=== PATIENT | male | born 2000 | race Caucasian/White ===

== ENCOUNTER 2019-11-10 16:31 | Emergency (ER) | payer OTHER, SELFPAY ==
--- NOTE | ~2019-11-10 | XR_ITS ---
EXAMINATION: XR chest 1V portable EXAM DATE: 11/10/2019 17:23 INDICATION: Cough and shortness of breath. Chills. Symptoms 2 days. TECHNIQUE: Portable AP frontal chest x-ray was obtained. There is no prior study for comparison. FINDINGS: The lungs are clear. There are no pleural effusions. Cardiomediastinal silhouette is norm al. There is no pneumothorax suspected. The bones and soft tissues are unremarkable. IMPRESSION: Unremarkable chest x-ray exam. Reviewed, dictated and finalized at location A.
--- NOTE | 2019-11-10 16:33 | ECG_ITS ---
Measurements Intervals [place] Rate: 101 P: 75 [place]: 143 QRS: 67 QRSD: 94 T: 35 QT: 343 QTc: 445 Interpretive Statements SINUS TACHYCARDIA BASELINE WANDER- I, II, V3-V6 BORDERLINE ECG Electronically Signed On 11-11-2019 7:05:36 CDT by Donald Clark D.O.
[2019-11-10 16:38] VITALS: BP 138/93; PULSE 84; RESP 20; TEMP 36.6; O2SAT 100
[2019-11-10 16:46] VITALS: PULSE 91
[2019-11-10 16:49] LABS: Basophils Percent Auto 0.6 % (0.2-1.2); Eosinophils Percent Auto 0.6 % (0-4.4); Hematocrit 45.5 % (42.0-52.0); Hemoglobin 15.4 g/dL (14.0-18.0); Immature Granulocyte Absolute 0.01 K/mm3 (0.00-0.031); Immature Granulocyte Percent A 0.1 % (0-0.5); Lymphocytes Absolute Auto 3.42 K/mm3 (0.9-3.2); Lymphocytes Percent Auto 49.9 % (18.3-44.2); Mean Corpuscular HGB Conc 33.8 g/dl (32-36); Mean Corpuscular Hemoglobin 30.6 pg (26-34); Mean Corpuscular Volume 90.5 fl (80-100); Mean Platelet Volume 11.4 fl (7.4-10.4); Monocytes Absolute Auto 0.8 K/mm3 (0.1-0.6); Monocytes Percent Auto 12.3 % (2.6-8.5); Neutrophils Absolute Auto 2.5 K/mm3 (1.3-6.7); Neutrophils Percent Auto 36.5 % (45.5-73.1); Platelet Count Result 199 k/mm3 (150-375); Red Blood Count 5.03 M/mm3 (4.6-6.20); Red Cell Distribution Width 12.7 % (11.5-14.5); White Blood Count 6.9 K/mm3 (4.5-10.0)
--- NOTE | 2019-11-10 16:53 | ED.GENADULT ---
HPI - General Adult General Chief complaint: Shortness of Breath/Dyspnea Stated complaint: I'm having issue breathing Time Seen by Provider: 11/10/19 16:34 Source: patient Mode of arrival: ambulatory Limitations: no limitations History of Present Illness HPI narrative: Patient is a 19-year-old male who presents with several days duration of congestion rhinorrhea cough productive of phlegm with some blood streak sputum at times patient notes pain to the anterior chest worse with coughing patient notes tobacco abuse patient also notes he has had some intermittent vomiting and diarrhea. Patient has not taken anything for his symptoms and on arrival is in the room in no distress resting comfortably. Patient denies any sick contacts Related Data Home Medications Medication Instructions Recorded Confirmed alprazolam 0.25 mg PO QID 11/10/19 Allergies Allergy/AdvReac Type Severity Reaction Status Date / Time No Known Allergies Allergy Unknown Verified 11/10/19 16:48 Review of Systems Review of Systems: All systems reviewed & are unremarkable except as noted in HPI and below PMFSH Past Medical History Medical History Anxiety Diverticulitis Social History Social History Smoking status: Current some day smoker Gender identity (if verbalized by the patient): Female Exam Narrative: Exam Narrative: GENERAL: Well-appearing, well-nourished, and in no acute distress. HEAD: Normocephalic, atraumatic. EYES: PERRLA and EOMI. ENT: Nares clear, no rhinorrhea or epistaxis. Mucous membranes moist. NECK: Supple. No adenopathy or masses. CHEST: Clear to auscultation. No respiratory distress. No wheezes rales or rhonchi HEART: Regular rate and rhythm. No murmur heard. Normal peripheral pulses. ABDOMEN: Soft, nontender, nondistended EXTREMITIES: Normal range of motion. No edema. SKIN: Warm, dry, no rash. NEURO: No focal deficits. Alert and oriented x3. PSYCH: Normal mood and affect. Course Course Emergency Course: Patient in the room in no distress aware of case findings treatment plan and diagnosis felt appropriate for outpatient evaluation by primary care provided with reasons to return no high risk changes in the blood work or imaging Vital Signs Vital signs: Vital Signs Temperature 97.8 F 11/10/19 16:38 Pulse Rate 84 11/10/19 16:38 Respiratory Rate 20 11/10/19 16:38 Blood Pressure 138/93 H 11/10/19 16:38 Pulse Oximetry 100 11/10/19 16:38 Temperature 97.8 F 11/10/19 16:38 Pulse Rate 91 11/10/19 16:46 Respiratory Rate 20 11/10/19 16:38 Blood Pressure 138/93 H 11/10/19 16:38 Pulse Oximetry 100 11/10/19 16:38 Medical Decision Making MDM Narrative Medical decision making narrative: Patient in the room in no distress aware of case findings treatment plan and diagnosis agreeing to follow-up as directed or to return if symptoms worsen or concerns. Patient is afebrile nontoxic-appearing no distress and felt appropriate for outpatient reevaluation. Patient provided with reasons to return Vital Signs Vital Signs: Vital Signs Temperature 97.8 F 11/10/19 16:38 Pulse Rate 84 11/10/19 16:38 Respiratory Rate 20 11/10/19 16:38 Blood Pressure 138/93 H 11/10/19 16:38 Pulse Oximetry 100 11/10/19 16:38 Temperature 97.8 F 11/10/19 16:38 Pulse Rate 91 11/10/19 16:46 Respiratory Rate 20 11/10/19 16:38 Blood Pressure 138/93 H 11/10/19 16:38 Pulse Oximetry 100 11/10/19 16:38 Lab Data Result diagrams: 11/10/19 16:42 11/10/19 16:42 Labs: Lab Results 11/10/19 11/10/19 Range/Units 16:42 16:42 WBC 6.9 (4.5-10.0) K/mm3 RBC 5.03 (4.6-6.20) M/mm3 Hgb 15.4 (14.0-18.0) g/dL Hct 45.5 (42.0-52.0) % MCV 90.5 (80-100) fl MCH 30.6 (26-34) pg MCHC 33.8 (32-36) g/dl RDW 12.7 (11.5-14.5) % Pl
[2019-11-10 17:02] LABS: Alanine Aminotransferase 13 U/L (4-50); Alkaline Phosphatase 76 U/L (38-126); Aspartate Amino Transferase 27 U/L (17-59); Blood Urea Nitrogen 17 mg/dL (9-20); Calcium 9.4 mg/dL (8.4-10.2); Carbon Dioxide 27 mmol/L (22-30); Chloride 102 mmol/L (98-107); Estimated CRCL calculation 106 ml/min; Estimated Glomerular Filt Rate > 60; Glucose 104 mg/dL (75-110); Lipase 35 U/L (23-300); Potassium 3.8 mmol/L (3.4-5.0); Sodium 138 mmol/L (137-145)
[2019-11-10] MEDS: SODIUM CHLORIDE 0.9% IV 1,000 ML 999 ML IV CONT (17:33)
[2019-11-10] MEDS: ONDANSETRON INJ 4 MG/2 ML VIAL IV PUSH (17:33)
[2019-11-10] MEDS: FAMOTIDINE 20 MG/2 ML VIAL IV PUSH (17:33)
[2019-11-10 18:21] VITALS: BP 103/66; PULSE 56; RESP 13; O2SAT 100
== END 2019-11-10 18:22 | disposition home or self-care (01) ==
PROVIDERS: Emergency Provider Emergency Medicine; PCP Internal Medicine
DX: J06.9 Acute upper respiratory infection, unspecified (principal); F41.9 Anxiety disorder, unspecified; F17.200 Nicotine dependence, unspecified, uncomplicated; R00.0 Tachycardia, unspecified
CPT/HCPCS: 36415; 71045; 80048; 80076; 83690; 85025; 93005; 96361; 96374; 96375; 99284; J2405; J7030

== ENCOUNTER 2021-11-22 15:32 | Emergency (ER) | payer OTHER, SELFPAY ==
--- NOTE | ~2021-11-22 | US_ITS ---
EXAMINATION: US scrotum doppler DATE: 11/22/2021 16:05 INDICATION: Right testicular pain. TECHNIQUE: Grayscale and Doppler ultrasound images of the testes were obtained. COMPARISON: None. FINDINGS: The right testis measures 4.1 x 3.2 x 2.7 cm. The left testis measures 4.7 x 3.8 x 2.2 cm. There is normal vascular flow to both testes. The right epididymis is normal with normal vascular violetta w. The left epididymis is normal with normal vascular flow. There is no varicocele or hydrocele. IMPRESSION: 1. Normal testes. Reviewed, dictated and finalized at location B. IMPRESSION: 1. Normal testes.
[2021-11-22 15:34] VITALS: BP 128/85; PULSE 76; RESP 20; TEMP 36.7; O2SAT 98
--- NOTE | 2021-11-22 15:59 | PC.NURSE ---
pt in [place].
--- NOTE | 2021-11-22 16:12 | ED.MALEGU ---
HPI - Male Genitourinary General Chief complaint: Urogenital-Male Stated complaint: testicular pain Time Seen by Provider: 11/22/21 15:42 History of Present Illness HPI Narrative: 21-year-old male presents the emergency room with acute onset of right testicular pain. Patient states he was having intercourse last night when his girlfriend while he grabbed his testicles, causing him to have pain in the right testicle. Patient states the pain is slightly improved since last night. Patient states that he had intercourse again this morning and notes a chunky seminal fluid Related Data Home Medications Medication Instructions Recorded Confirmed No Home Medications 11/22/21 11/22/21 Allergies Allergy/AdvReac Type Severity Reaction Status Date / Time No Known Allergies Allergy Unknown Verified 11/22/21 15:59 [facility] Past Medical History Medical History (Updated 11/22/21 @ 18:04 by Ry Willoughby APRN) Anxiety Diverticulitis Social History Social History Smoking status: Current some day smoker Gender identity (if verbalized by the patient): Female Course Vital Signs Vital signs: Vital Signs Temperature 36.7 C 11/22/21 15:34 Pulse Rate 76 11/22/21 15:34 Respiratory Rate 20 11/22/21 15:34 Blood Pressure 128/85 11/22/21 15:34 Pulse Oximetry 98 11/22/21 15:34 Temperature 36.7 C 11/22/21 15:34 Pulse Rate 76 11/22/21 15:34 Respiratory Rate 20 11/22/21 15:34 Blood Pressure 128/85 11/22/21 15:34 Pulse Oximetry 98 11/22/21 15:34 MDM - Male Genitourinary MDM Narrative Medical decision making narrative: 21-year-old male presented the emergency room for evaluation of testicular pain following intercourse last night. Testicular ultrasound showed no acute abnormality with the testes. Urine showed no evidence of infection or hematuria. After discussion with the patient regarding the results, he was agreeable to being tested, but not treated, for gonorrhea chlamydia and trichomonas. Lab Data Attestation: I reviewed the patient's lab results. Labs: Lab Results 11/22/21 Range/Units 16:42 Urine Color Yellow (Yellow) Urine Appearance Clear (Clear) Urine pH 6.5 (5.0-9.0) Ur Specific [place] 1.025 (1.001-1.035) Urine Protein Negative (Negative) mg/dL Urine Glucose (UA) Negative (Negative) mg/dL Urine Ketones Trace (Negative) mg/dL Ur Blood (Man) Negative (Negative) Urine Nitrate Negative (Negative) Urine Bilirubin Negative (Negative) Urine Urobilinogen 0.2 (<2.0) mg/dL Leukocyte Esterase Rfl Negative (Negative) STACY/UL Urine Characteristics Clear Imaging Data Radiologist's impression: Impressions Scrotum Ultrasound 11/22/21 16:07 IMPRESSION: 1. Normal testes. Discharge Plan Discharge Clinical Impression: Pain in testicle Qualifiers: Laterality: right Qualified Code(s): N50.811 - Right testicular pain Patient Disposition: Home, Self-Care Condition: Stable Instructions: Antibiotic Form, Testicle Pain (ED), Scrotal Pain (ED) Additional Instructions: Recommend Tylenol and ibuprofen as needed for pain if you are continuing to have painful intercourse, recommend discontinuing the activity until the pain is resolved. Prescriptions: No Action No Home Medications RF: 0 Follow-up/Referrals: Apolinar,MD Bryan [Primary Care Provider] - Emily Ware MD [Physician] - Time of Disposition: 18:04
--- NOTE | 2021-11-22 16:48 | PC.NURSE ---
pt would like to clarify that his urine is not lumpy, his ejaculate is.
[2021-11-22 17:47] LABS: Appearance Urine Clear (Clear); Bilirubin Urine Negative (Negative); Blood Urine Negative (Negative); Color Urine Yellow (Yellow); Glucose Urine UA Negative (Negative); Ketones Urine Trace mg/dL (Negative); Leukocyte Esterase Ur Negative LEU/UL (Negative); Nitrate Urine Negative (Negative); Protein Urine Negative (Negative); Specific Grav Ur 1.025 (1.001-1.035); Urobilinogen Urine 0.2 mg/dL (<2.0); pH Urine 6.5 (5.0-9.0)
[2021-11-22 17:54] LABS: Mucus Urine Rare /lpf; RBC Urine 0-2 /hpf (0-2); Squamous Epithelial Cell Urine Rare /hpf (Few)
[2021-11-22 18:06] LABS: Add Urine Microscopic? YES
[2021-11-22 18:20] VITALS: BP 122/77; PULSE 70; RESP 14; O2SAT 100
== END 2021-11-22 18:21 | disposition home or self-care (01) ==
PROVIDERS: Emergency Provider Nurse Practitioner Family; PCP Internal Medicine
DX: N50.811 Right testicular pain (principal); F17.200 Nicotine dependence, unspecified, uncomplicated
CPT/HCPCS: 76870; 81001; 87491; 87591; 87661; 93976; 99284

== ENCOUNTER 2022-09-07 14:12 | Emergency (ER) | payer OTHER, SELFPAY ==
--- NOTE | 2022-09-07 14:22 | ED.WOUNDLAC ---
HPI - Wound/Laceration General Chief Complaint: Wound/Laceration Stated Complaint: wound check Time Seen by Provider: 09/07/22 14:37 Source: patient and RN notes reviewed Mode of arrival: ambulatory Limitations: no limitations History of Present Illness HPI narrative: 22 y/o male presented for c/o sore on penis shaft. States it started as a painful red bump about 10 days ago. This was after shaving the deandra area, then had sexual contact, and admits he did not shower. He noted a hair at the center. Since then it has increased in size and drained yellow pus yesterday. States he had a large amount of pus and blood from the site, which stopped after applying pressure. Continues to report pain to the site. No active drainage today. Denies n/v/d/f/c. Denies concern for STD. Denies any other skin lesions. Girlfriend at bedside denies lesions. Related Data Allergies Allergy/AdvReac Type Severity Reaction Status Date / Time No Known Allergies Allergy Unknown Verified 09/07/22 14:26 Review of Systems Review of Systems: CONSTITUTIONAL: Denies body aches, fever, chills, or sweats. CARDIOVASCULAR: Denies chest pain, palpitations, or edema. RESPIRATORY: Denies cough or dyspnea. GASTROINTESTINAL: Denies abdominal pain, nausea, vomiting, or diarrhea. GENITOURINARY: Denies dysuria, frequency, urgency, hematuria, flank pain SKIN: Reports open area to penis MUSCULOSKELETAL: Denies back pain or myalgia. [facility] Past Medical History Medical History Anxiety Diverticulitis Social History Social History Smoking status: Current some day smoker Gender identity (if verbalized by the patient): Female Comments At time of signature, I have reviewed and agree with nursing past medical, surgical, social and family history unless otherwise noted. Please see nursing chart for further information. There is no relevant family history pertinent to the presenting complaint Exam Narrative: GENERAL: Well-appearing and in no acute distress. EYES: EOMI. . ENT: Mucous membranes pink and moist. NECK: Normal AROM. Supple. CHEST: No respiratory distress. Clear to auscultation. HEART: Regular rate and rhythm. ABDOMEN: Soft, nontender, nondistended, No CVA tenderness : approx 1cmx0.5cm diameter erythematous ulcerated area to right penis shaft, no active drainage; reports tenderness, no induration or fluctuance SKIN: Warm, dry, no rash. NEURO: No focal deficits. Alert and oriented x3. Gait steady. PSYCH: Normal affect. Course Course Emergency Course: Patient is aware of diagnosis, understands and agrees to treatment plan. Anticipatory guidance given. Patient agrees to follow-up as directed and is aware of reasons to seek care at the emergency department. Portions of this record may have been created with voice recognition software Level of Care: Express Care Visit Vital Signs Vital signs: Vital Signs Temperature 98.5 F 09/07/22 14:33 Pulse Rate 64 09/07/22 14:33 Respiratory Rate 16 09/07/22 14:33 Blood Pressure 138/69 09/07/22 14:33 Pulse Oximetry 100 09/07/22 14:33 Oxygen Delivery Room Air 09/07/22 14:33 Temperature 98.5 F 09/07/22 14:33 Pulse Rate 64 09/07/22 14:33 Respiratory Rate 16 09/07/22 14:33 Blood Pressure 138/69 09/07/22 14:33 Pulse Oximetry 100 09/07/22 14:33 Oxygen Delivery Room Air 09/07/22 14:33 Reviewed MDM - Wound/Laceration MDM Narrative Medical decision making narrative: Patient presented for c/o painful sore to right side of penis shaft for 10 days, stating it has drained pus last night. Appearance on PE is c/w ulceration, possibly r/t recent drainage. It shows no induration or fluctuance, no vesicle or covered lesion. Declines STD testing. Discussed at length possible etiologies of the lesion as well as risk of jose's gangrene. Advised supportive measur
[2022-09-07 14:33] VITALS: BP 138/69; PULSE 64; RESP 16; TEMP 36.9; O2SAT 100
== END 2022-09-07 15:06 | disposition home or self-care (01) ==
PROVIDERS: Emergency Provider Nurse Practitioner Family
DX: L98.8 Other specified disorders of the skin and subcutaneous tissue (principal); F17.200 Nicotine dependence, unspecified, uncomplicated
CPT/HCPCS: 99213; G0463

== ENCOUNTER 2022-09-11 15:58 | Emergency (ER) | payer OTHER, SELFPAY ==
[2022-09-11 16:02] VITALS: BP 113/65; PULSE 56; RESP 16; TEMP 36.4; O2SAT 99
--- NOTE | 2022-09-11 16:21 | ED.SKABFB ---
HPI - Skin/Abscess/Foreign Bdy General Chief complaint: Skin/Abscess/Foreign Body Stated complaint: Male Urogenital Time Seen by Provider: 09/11/22 16:21 Source: patient Mode of arrival: ambulatory Limitations: no limitations History of Present Illness HPI narrative: 22-year-old male presents requesting ingrown hair to penis be removed today. Patient states he was seen here several days ago and given a antibiotic to treat infection from an ingrown hair. States at that time they could not find the hair to remove it. Today he states he can see it but he is not able to remove it himself. Has been taking doxycycline as prescribed. Afebrile. States drainage daily from infection. Is concerned that if ingrown hair is not removed will not heal properly. All systems reviewed and negative except as noted above. Related Data Allergies Allergy/AdvReac Type Severity Reaction Status Date / Time No Known Allergies Allergy Unknown Verified 09/11/22 16:16 Review of Systems Review of Systems: CONSTITUTIONAL: Denies fever, chills, or sweats. EYES: Denies visual changes, redness, or discharge. ENT: Denies rhinorrhea, congestion, sore throat, or otalgia. CARDIOVASCULAR: Denies chest pain, palpitations, or edema. RESPIRATORY: Denies cough or dyspnea. GASTROINTESTINAL: Denies abdominal pain, nausea, vomiting, or diarrhea. GENITOURINARY: Denies dysuria or hematuria. SKIN: Denies rash or itching. Reports ingrown hair to penis. MUSCULOSKELETAL: Denies back pain, joint pain, or myalgia. NEUROLOGIC: Denies headache, numbness, or weakness. PSYCHIATRIC: Denies anxiety or depression. All other systems reviewed are negative, except as documented in HPI. PMFSH Past Medical History Medical History (Updated 09/11/22 @ 16:30 by Coleen Sebastian NP) Anxiety Diverticulitis Social History Social History Smoking status: Current some day smoker Gender identity (if verbalized by the patient): Female Comments At time of signature, agree with nursing past medical, surgical, social and family history. There is no relevant family history pertinent to the presenting complaint. Exam Narrative: GENERAL: This is a well-nourished, well-developed patient, in no apparent distress. HEAD: normocephalic, atraumatic. EYES: PERRL. Sclera clear/white. Vision is grossly intact. EARS: External ears normal NOSE: External nose normal NECK: Neck supple, non-tender without lymphadenopathy, masses or thyromegaly. CARDIOVASCULAR: Regular rate and rhythm without murmurs, gallops, or rubs. RESPIRATORY: Clear to auscultation. Breath sounds equal bilaterally. No wheezes, rales, or rhonchi. SKIN: warm, Dry, intact with no suspicious lesions or rash, good texture and turgor. Ingrown hair noted to underside of shaft of penis with surrounding erythema. NEURO: awake, alert, and oriented to person, place and time. There were no obvious focal neurologic abnormalities. EXTREMITIES: No joint tenderness, effusion, or edema noted. Course Course Level of Care: Express Care Visit Vital Signs Vital signs: Vital Signs Temperature 36.4 C 09/11/22 16:02 Pulse Rate 56 L 09/11/22 16:02 Respiratory Rate 16 09/11/22 16:02 Blood Pressure 113/65 09/11/22 16:02 Pulse Oximetry 99 09/11/22 16:02 Oxygen Delivery Room Air 09/11/22 16:02 Temperature 36.4 C 09/11/22 16:02 Pulse Rate 56 L 09/11/22 16:02 Respiratory Rate 16 09/11/22 16:02 Blood Pressure 113/65 09/11/22 16:02 Pulse Oximetry 99 09/11/22 16:02 Oxygen Delivery Room Air 09/11/22 16:02 Reviewed Procedures Other Procedure Procedure 1: Other Procedure: ingrown hair pulled out of skin using 18 gauge needle. is now growing normally. MDM - Skin/Abscess/Foreign Bdy MDM Narrative Medical decision making narrative: Patient is aware of diagnosis, understands and agrees to treatment plan. Anticipatory guidance
== END 2022-09-11 16:51 | disposition home or self-care (01) ==
PROVIDERS: Emergency Provider Nurse Practitioner Family
DX: L73.1 Pseudofolliculitis barbae (principal)
CPT/HCPCS: 99211; G0463

== ENCOUNTER 2023-01-02 21:11 | Emergency (ER) | payer OTHER, SELFPAY ==
[2023-01-02 21:17] VITALS: BP 119/68; PULSE 54; RESP 14; TEMP 36.4; O2SAT 99
--- NOTE | 2023-01-02 22:33 | ED.WOUNDLAC ---
HPI - Wound/Laceration General Chief Complaint: Wound/Laceration Stated Complaint: left index finger laceration Time Seen by Provider: 01/02/23 22:33 Source: patient Mode of arrival: ambulatory Limitations: no limitations History of Present Illness HPI narrative: THis is a 22 year old male right hand dominant who presents for evaluation of left index finger laceration. He states he was messing with new knife when he accidentally cut his left index finger on this knife. Last tetanus 4 years ago. Bleeding controlled. Related Data Allergies Allergy/AdvReac Type Severity Reaction Status Date / Time No Known Allergies Allergy Unknown Verified 09/11/22 16:16 Review of Systems Review of Systems: All systems reviewed & are unremarkable except as noted in HPI and below PMFSH Past Medical History Medical History (Updated 01/02/23 @ 22:52 by Michelle Espinoza MD) Anxiety Diverticulitis Social History Social History (Updated 01/02/23 @ 22:34 by Michelle Espinoza MD) Smoking status: Current some day smoker Substance use type: marijuana Gender identity (if verbalized by the patient): Female Exam Const: General: no acute distress and alert Nutritional Appearance: well nourished Orientation/consciousness: patient oriented x3 HENMT: Head: normal to inspection Eyes: EOM: EOMs intact bilaterally Chest: Chest palpation & inspection: normal inspection of the chest Resp: Effort & Inspection: normal respiratory effort Neuro: General: patient oriented x3, moves all extremities and CN's II-XI intact bilaterally Cranial nerves: Yes Nystagmus not present Gait exam (Neuro): Normal gait present Extrem: Other: FROM linear laceration at DIP joint dorsum index finger 1 cm Psych: Mental Status: mental status grossly normal Attitude: cooperative Course Reevaluation(s) Reevaluation #1: I repaired patient finger and discussed wound care and discharge plan Date: 01/02/23 Time: 22:51 Vital Signs Vital signs: Vital Signs Temperature 97.6 F 01/02/23 21:17 Pulse Rate 54 L 01/02/23 21:17 Respiratory Rate 14 01/02/23 21:17 Blood Pressure 119/68 01/02/23 21:17 Pulse Oximetry 99 01/02/23 21:17 Oxygen Delivery Room Air 01/02/23 21:17 Temperature 97.6 F 01/02/23 21:17 Pulse Rate 54 L 01/02/23 21:17 Respiratory Rate 14 01/02/23 21:17 Blood Pressure 119/68 01/02/23 21:17 Pulse Oximetry 99 01/02/23 21:17 Oxygen Delivery Room Air 01/02/23 21:17 Procedures Laceration Laceration 1: Date: 01/02/23 Time: 22:50 Site: hand (left index finger) Side (If applicable): left Size (cm): 1 Description: linear Depth: simple, single layer Local Anesthetic: lidocaine 1% (digital nerve block) Pre-repair: wound explored and irrigated ====== Skin Level ====== Skin layer closed with: prolene Size (cm): 4-0 Number of sutures: 2 Technique: simple, interrupted ====== Subcutaneous Layer ====== ====== Muscle Layer ====== ====== Tendon Layer ====== Discharge Plan Discharge Clinical Impression: Laceration of left index finger Qualifiers: Encounter type: initial encounter Damage to nail status: without damage Foreign body presence: without foreign body Qualified Code(s): S61.211A - Laceration without foreign body of left index finger without damage to nail, initial encounter Patient Disposition: Home, Self-Care Condition: Stable Instructions: Antibiotic Form, Care For Your Stitches (ED), Laceration (ED) Additional Instructions: Keep wound clean and dry. Have stitches removed in 10 days. Prescriptions: No Action doxycycline hyclate 100 mg tablet 100 mg PO BID 14 Days Qty: 28 0RF Follow-up/Referrals: PHYSICIAN,MACHINE ICER [Primary Care Provider] - Gabriel Chakraborty MD [Physician] -
[2023-01-02] MEDS: IBUPROFEN 400 MG TABLET 800 MG PO (22:51)
== END 2023-01-02 23:30 | disposition home or self-care (01) ==
LOC: ANHED 22:58
PROVIDERS: Emergency Provider General Practice
DX: S61.211A Laceration without foreign body of left index finger without damage to nail, initial encounter (principal); F17.210 Nicotine dependence, cigarettes, uncomplicated; W26.0XXA Contact with knife, initial encounter
CPT/HCPCS: 12001; 99282; A9270